=== PATIENT | male | born 1955 | race African-American/Black ===

== ENCOUNTER 2016-12-16 20:42 | Inpatient (IN) | payer OTHER ==
[~2016-12-16] VITALS: Ht 185.4 cm; Wt 78.0 kg
[2016-12-16 21:15] LABS: BASOPHIL % 0.4 % (0-2); PLATELET COUNT 340 x10^3mcL (130-400)
[2016-12-16 21:16] LABS: RED CELL DISTRIBUTION WIDTH 15.1 % (11.5-14.5)
[2016-12-16] MEDS ORDERED: LISINOPRIL40 MG PO (21:20)
[2016-12-16] MEDS ORDERED: LEVEMIR100 U/M1 SC (21:20)
[2016-12-16] MEDS ORDERED: NOR10 PO (21:21)
[2016-12-16] MEDS ORDERED: ASPIR 8181 MG PO (21:21)
[2016-12-16] MEDS ORDERED: METFORMIN HCL850 MG PO ×2 (21:21→23:29)
[2016-12-16 21:22] LABS: CALCIUM 8.2 mg/dL (8.5-10.1); CARBON DIOXIDE 28.9 mmol/L (21-32); CREATININE SERUM 2.2 mg/dL (0.7-1.3); POTASSIUM SERUM 3.9 mmol/L (3.5-5.1)
[2016-12-16] MEDS ORDERED: ATORVASTATIN CA40 M1 PO (21:22)
[2016-12-16] MEDS ORDERED: CARVEDILOL6.25 M1 PO (21:22)
[2016-12-16] MEDS ORDERED: HYDROCHLOROTHIA25 MG PO (21:22)
[2016-12-16] MEDS ORDERED: ACT30 PO (21:22)
[2016-12-16 21:27] LABS: ALBUMIN 3.2 g/dL (3.4-5.0); BILIRUBIN TOTAL 0.36 mg/dL (0.20-1.00); TOTAL PROTEIN, SERUM 7.5 g/dL (6.4-8.2)
[2016-12-16 21:51] LABS: CK-MB 1.3 ng/mL (0-3.6)
[2016-12-17 00:41] LABS: PHOSPHOROUS 3.4 mg/dL (2.5-4.9)
[2016-12-17 00:42] LABS: ALBUMIN 3.3 g/dL (3.4-5.0); CHOLESTEROL/HDL RATIO 2.3
[2016-12-17 01:03] VITALS: BP 150/75
[2016-12-17 02:33] LABS: microscopic required? YES; urine erythrocyte TRACE (NEGATIVE)
[2016-12-17 02:46] LABS: AMPHETAMINE QUAL UR NONE DETECTED (NEG <=1000)
[2016-12-17 05:39] VITALS: BP 148/79
[2016-12-17 09:51] VITALS: BP 149/67
[2016-12-17 17:27] VITALS: BP 160/80
[2016-12-17 21:48] VITALS: BP 153/83
[2016-12-18 05:36] VITALS: BP 150/77
[2016-12-18 06:05] LABS: BASOPHIL % 0.5 % (0-2); PLATELET COUNT 321 x10^3mcL (130-400)
[2016-12-18 06:23] LABS: CALCIUM 8.3 mg/dL (8.5-10.1); CARBON DIOXIDE 27.1 mmol/L (21-32); CREATININE SERUM 1.4 mg/dL (0.7-1.3); MAGNESIUM 2.1 mg/dL (1.8-2.4); PHOSPHOROUS 4.4 mg/dL (2.5-4.9); POTASSIUM SERUM 3.7 mmol/L (3.5-5.1)
[2016-12-18 06:33] LABS: RED CELL DISTRIBUTION WIDTH 14.8 % (11.5-14.5)
[2016-12-18] MEDS ORDERED: CLINDAMYCIN HC300 MG PO (09:53)
[2016-12-18] MEDS ORDERED: ACIDOPHILUS1 EAC2 PO (09:56)
[2016-12-18 10:28] VITALS: BP 150/77
== END 2016-12-18 14:56 | disposition home or self-care (01) | DRG 380 ==
LOC: ED 20:42 → DU 22:11 → MU 12-17 11:04
PROVIDERS: Emergency Medicine; ADMIT Family Medicine
PROC: 0JBR0ZZ Excision of Left Foot Subcutaneous Tissue and Fascia, Open Approach (ICD-10-PCS; principal; 2016-12-17)
PROC: 0JBQ0ZZ Excision of Right Foot Subcutaneous Tissue and Fascia, Open Approach (ICD-10-PCS; 2016-12-17)
DX: E11.628 Type 2 diabetes mellitus with other skin complications (principal); L97.529 Non-pressure chronic ulcer of other part of left foot with unspecified severity; N17.0 Acute kidney failure with tubular necrosis; E44.0 Moderate protein-calorie malnutrition; E11.621 Type 2 diabetes mellitus with foot ulcer; D68.69 Other thrombophilia; E11.65 Type 2 diabetes mellitus with hyperglycemia; E11.40 Type 2 diabetes mellitus with diabetic neuropathy, unspecified; L03.031 Cellulitis of right toe; I10 Essential (primary) hypertension; E78.5 Hyperlipidemia, unspecified; F12.10 Cannabis abuse, uncomplicated; Z79.4 Long term (current) use of insulin; Z79.82 Long term (current) use of aspirin; Z68.36 Body mass index [BMI] 36.0-36.9, adult; Z79.84 Long term (current) use of oral hypoglycemic drugs; Z86.73 Personal history of transient ischemic attack (TIA), and cerebral infarction without residual deficits; Z83.3 Family history of diabetes mellitus; Z82.49 Family history of ischemic heart disease and other diseases of the circulatory system; R31.9 Hematuria, unspecified; L85.3 Xerosis cutis
CPT/HCPCS: 82962; 83880; J0690; J1815; J3490; J7030; Q0092

== ENCOUNTER 2017-11-17 08:47 | Emergency (ER) | payer OTHER ==
[~2017-11-17] VITALS: Ht 185.4 cm; Wt 127.2 kg
[~2017-11-17 08:47] MED LIST: ACIDOPHILUS1 EAC2 PO; ACT30 PO; ASPIR 8181 MG PO; ATORVASTATIN CA40 M1 PO; CARVEDILOL6.25 M1 PO; CLINDAMYCIN HC300 MG PO; HYDROCHLOROTHIA25 MG PO; LEVEMIR100 U/M1 SC; LISINOPRIL40 MG PO; METFORMIN HCL850 MG PO; NOR10 PO
[2017-11-17 08:50] VITALS: Ht 185.4 cm; Wt 127.2 kg
[2017-11-17 10:55] VITALS: BP 140/78
== END 2017-11-17 10:55 | disposition home or self-care (01) ==
LOC: ED 08:47
DX: J06.9 Acute upper respiratory infection, unspecified (principal); I10 Essential (primary) hypertension; E11.9 Type 2 diabetes mellitus without complications; E78.00 Pure hypercholesterolemia, unspecified

== ENCOUNTER 2019-06-23 05:35 | Emergency (ER) | payer OTHER ==
[~2019-06-23] VITALS: Ht 185.4 cm; Wt 126.8 kg
[2019-06-23 05:39] VITALS: Ht 185.4 cm; Wt 126.8 kg
[2019-06-23 07:15] VITALS: BP 176/89
== END 2019-06-23 07:15 | disposition home or self-care (01) ==
LOC: ED 05:35
DX: S49.92XA Unspecified injury of left shoulder and upper arm, initial encounter (principal); I10 Essential (primary) hypertension; E11.9 Type 2 diabetes mellitus without complications; E78.00 Pure hypercholesterolemia, unspecified; W18.30XA Fall on same level, unspecified, initial encounter; Y93.89 Activity, other specified; Y92.89 Other specified places as the place of occurrence of the external cause; Y99.8 Other external cause status
CPT/HCPCS: Q0092